=== PATIENT | female | born 1995 | race Two or more races ===

== ENCOUNTER 2022-03-21 11:24 | Emergency (ER) | payer MEDICAID ==
[~2022-03-21] VITALS: Ht 157.5 cm; Wt 64.4 kg
[2022-03-21 11:27] VITALS: BP 118/79
[2022-03-21] MEDS ORDERED: LIDOCAINE 1% HCL (LOCAL ANESTH.) INJ 20ML MDV IJ ONE (12:15)
[2022-03-21] MEDS ORDERED: cefTRIAXone SOD 1,000 MG VL ONE (12:24)
[2022-03-21] MEDS ORDERED: cefTRIAXone SOD 1,000 MG VL IM ONE (12:30)
[2022-03-21] MEDS ORDERED: ACETAMINOPHEN 325 MG TAB PO ONE (12:30)
[2022-03-21] MEDS ORDERED: ACET-1080 PO (12:31)
[2022-03-21] MEDS ORDERED: CEPH-509 PO (12:31)
== END 2022-03-21 12:40 | disposition home or self-care (01) ==
LOC: ER 11:42
DX: N75.1 Abscess of Bartholin's gland (principal); N39.0 Urinary tract infection, site not specified; Z79.899 Other long term (current) drug therapy
CPT/HCPCS: 56420; 96372; 99284; J0696; J2001

== ENCOUNTER 2022-03-23 13:19 | Emergency (ER) | payer MEDICAID ==
[~2022-03-23] VITALS: Ht 162.6 cm; Wt 64.4 kg
[~2022-03-23 13:19] MED LIST: ACET-1080 PO; CEPH-509 PO
[2022-03-23 13:43] VITALS: BP 109/70
== END 2022-03-23 14:51 | disposition home or self-care (01) ==
LOC: ER 13:19
DX: N76.0 Acute vaginitis (principal); Z48.00 Encounter for change or removal of nonsurgical wound dressing

== ENCOUNTER 2022-06-21 15:52 | Emergency (ER) | payer MEDICAID ==
[~2022-06-21] VITALS: Ht 157.5 cm; Wt 64.5 kg
[2022-06-21 18:13] VITALS: BP 113/61
== END 2022-06-21 22:38 | disposition home or self-care (01) ==
LOC: ER 15:52
DX: O26.892 Other specified pregnancy related conditions, second trimester (principal); R10.13 Epigastric pain; Z3A.27 27 weeks gestation of pregnancy

== ENCOUNTER 2022-09-10 23:27 | Inpatient (IN) | payer MEDICAID ==
[~2022-09-10] VITALS: Ht 162.6 cm; Wt 78.5 kg
[2022-09-11 00:58] LABS: Urine Bacteria FEW /hpf (None Seen); Urine Blood 2+ /uL (Negative); Urine WBC 2 /hpf (0 - 5)
[2022-09-11] MEDS ORDERED: LIDOCAINE 2%HCL (LOCAL ANESTH.) INJ 10ml MDV IJ PRN (03:00)
[2022-09-11] MEDS ORDERED: BUTORPHANOL TARTRATE 2 MG/1 ML VIAL IV PRN ×2 (03:00)
[2022-09-11] MEDS ORDERED: PROMETHAZINE HCL 25 MG/ML 1ML IM PRN (03:00)
[2022-09-11] MEDS ORDERED: LACT. RINGERS/OXYTOCIN 20UNITS 500 ML IV ONE ×2 (03:00→03:30)
[2022-09-11] MEDS ORDERED: PHISODERM TOP SOLN 240ML BTL TOP PRN (03:00)
[2022-09-11] MEDS ORDERED: PROMETHAZINE HCL 25 MG/ML 1ML IV PRN (03:00)
[2022-09-11] MEDS ORDERED: PENICILLIN G POT 5MIL/D5 50ML 50 ML IV ONE (03:00)
[2022-09-11 04:19] LABS: Basophils # (auto) 0.1 10 ^3/uL (0-0.2); Basophils % (auto) 0.6 % (0.0-2.0); Eosinophils # (auto) 0.1 10 ^3/uL (0-0.8); Eosinophils % (auto) 0.9 % (0.0-7.0); Hematocrit 29.3 % (36.0-46.0); Hemoglobin 9.2 g/dL (12.2-16.2); Lymphocytes # (auto) 2.6 10 ^3/uL (0.4-5.4); Lymphocytes % (auto) 21.3 % (10.0-50.0); Mean Corpuscular Hemoglobin 19.3 pg (28.0-32.0); Mean Corpuscular Hgb Conc. 31.6 g/dL (32.0-36.0); Mean Corpuscular Volume 61.2 fL (80.0-100.0); Monocytes # (auto) 0.7 10 ^3/uL (0-1.3); Monocytes % (auto) 5.5 % (0.0-12.0); Neutrophils # (auto) 8.6 10 ^3/uL (1.6-8.6); Neutrophils % (auto) 71.7 % (37.0-80.0); Nucleated Red Blood Cells % 0.3 %; Red Blood Cells 4.78 10^6/uL (4.0-5.20); Red Cell Distribution Width 14.7 % (11.8-14.3)
[2022-09-11] MEDS: LACTATED RINGER'S 1,000 ML IV SCH ×3 (04:22→17:08)
[2022-09-11 04:35] LABS: INR 0.97 (0.9-1.15); Partial Thromboplastin Time 25.4 sec (24.6-33.4)
[2022-09-11 04:39] LABS: Albumin 2.8 g/dL (3.4-5.0); BUN/Creatinine Ratio 18.9; Calcium 8.6 mg/dL (8.5-10.1); Potassium 3.8 mmol/L (3.5-5.1)
[2022-09-11 04:42] LABS: Bilirubin, Total 0.4 mg/dL (0.2-1.0); Total Protein 6.7 g/dL (6.4-8.2)
[2022-09-11] MEDS ORDERED: LACT. RINGERS/OXYTOCIN 20UNITS 1,000 ML IV SCH (05:15)
[2022-09-11] MEDS ORDERED: TERBUTALINE SULFATE 1 MG/ML 1ML VIAL SC PRN (05:15)
[2022-09-11 05:39] LABS: Alcohol, Urine < 3.0 mg/dL (0-10); Amphetamine Screen, Urine NEGATIVE (NEGATIVE); Barbiturate Scree,Urine NEGATIVE (NEGATIVE); Benzodiazephine Screen, Urine NEGATIVE (NEGATIVE); Cannabinoid Screen, Urine NEGATIVE (NEGATIVE); Cocaine Screen, Urine NEGATIVE (NEGATIVE); Opiate Scree,Urine NEGATIVE (NEGATIVE); Phencyclidine Screen, Urine NEGATIVE (NEGATIVE)
[2022-09-11] MEDS ORDERED: PREN-96 PO (06:42)
[2022-09-11] MEDS: DERMOPLAST 60ML BOTTLE TOP PRN (07:50)
[2022-09-11] MEDS: WITCH HAZEL-GLYCERIN PAD TOP PRN (07:50)
[2022-09-11] MEDS: PENICILLIN G POTASSIUM 2,500,000 UNITS in D5W 5% 50 ML IV SCH ×5 (08:23→22:59)
[2022-09-11] MEDS: miSOPROStol 50 MCG per PRE-CUT 1/2 TAB PO PRN ×2 (10:01→14:31)
[2022-09-11] MEDS: ceFAZolin 1GM/50ML 50 ML IV SCH ×2 (10:02→17:54)
[2022-09-11] MEDS ORDERED: fentaNYL CITRATE 100 MCG/2 ML VL IV ONE (15:30)
[2022-09-11] MEDS ORDERED: LACTATED RINGER'S 1,000 ML IV ONE (15:30)
[2022-09-11] MEDS ORDERED: NALOXONE HCL 0.4 MG/ML VIAL IV ONE (15:30)
[2022-09-11] MEDS ORDERED: LIDOCAINE HCL 2 %PF INJ 10ML AMP IJ ONE (15:30)
[2022-09-11] MEDS ORDERED: ROPIVACAINE HCL 200 ML EPI SCH (15:30)
[2022-09-11] MEDS ORDERED: ePHEDrine SULFATE 50 MG/ML AMP IV ONE (15:30)
[2022-09-12] MEDS ORDERED: ONDANSETRON ODT 4 MG TAB PO PRN (01:15)
[2022-09-12] MEDS ORDERED: ACETAMINOPHEN 325 MG TAB PO PRN ×2 (01:15)
[2022-09-12] MEDS: IBUPROFEN 600 MG TAB PO PRN ×2 (01:37→18:41)
[2022-09-12 03:00] VITALS: BP 122/76
[2022-09-12] MEDS: WITCH HAZEL-GLYCERIN PAD TOP PRN (03:30)
[2022-09-12] MEDS: DERMOPLAST 60ML BOTTLE TOP PRN (03:30)
[2022-09-12 06:44] VITALS: BP 118/71
[2022-09-12 07:06] LABS: RPR Non Reactive (Non Reactive)
[2022-09-12 11:00] VITALS: BP 124/80
[2022-09-12 15:20] VITALS: BP 127/66
[2022-09-12 18:30] VITALS: BP 117/66
[2022-09-12] MEDS ORDERED: DOCUSATE SOD 100 MG CAP PO SCH (22:00)
[2022-09-12 23:00] VITALS: BP 108/71
[2022-09-13 03:30] VITALS: BP 113/76
[2022-09-13 06:15] VITALS: BP 101/61
[2022-09-13 06:50] VITALS: BP 101/61
[2022-09-13] MEDS: IBUPROFEN 600 MG TAB PO PRN (07:27)
[2022-09-13] MEDS ORDERED: TETANUS-DIPTH-ACEL PERTUSSIS 0.5ML SYR Tdap IM ONE (08:30)
[2022-09-13 11:14] VITALS: BP 120/75
== END 2022-09-13 11:30 | disposition home or self-care (01) | DRG 560 ==
LOC: LDRP 23:27 → OBSVTOIN 09-11 02:55 → LDRP 09-11 03:55
PROVIDERS: ADMIT Obstetrics & Gynecology Obstetrics; ATTEND Obstetrics & Gynecology Obstetrics
PROC: 10E0XZZ Delivery of Products of Conception, External Approach (ICD-10-PCS; principal; 2022-09-12)
PROC: 3E0R3BZ Introduction of Anesthetic Agent into Spinal Canal, Percutaneous Approach (ICD-10-PCS; 2022-09-12)
PROC: 00HU33Z Insertion of Infusion Device into Spinal Canal, Percutaneous Approach (ICD-10-PCS; 2022-09-12)
DX: O42.92 Full-term premature rupture of membranes, unspecified as to length of time between rupture and onset of labor (principal); Z37.0 Single live birth; D64.9 Anemia, unspecified; O99.02 Anemia complicating childbirth; Z20.822 Contact with and (suspected) exposure to COVID-19; O70.0 First degree perineal laceration during delivery; Z3A.39 39 weeks gestation of pregnancy; Z88.8 Allergy status to other drugs, medicaments and biological substances
CPT/HCPCS: 36415; 59025; 59409; 76805; 76815; 80053; 80307; 81001; 81002; 84112; 85025; 85610; 85730; 86592; 86850; 86900; 86901; 87426; 90715; 94760; 96360; 96361; 96365; 96366; 96374; G0378; J0690; J2540; J2590; J7060